=== PATIENT | male | born 1995 | race Two or more races ===

== ENCOUNTER 2017-09-21 17:57 | Emergency (ER) | payer OTHER ==
[2017-09-21 18:06] VITALS: BP 119/77
[2017-09-21] MEDS ORDERED: AMOXICILLIN 250 MG PREPACK#4 BTL TAKEHOME ONE (18:25)
--- NOTE | 2017-09-21 18:25 | EDPHY ---
H & P Stated Complaint: right ear pain . 5 days of clod s/s Time Seen by Provider: 09/21/17 18:01 HPI/ROS: CHIEF COMPLAINT: Right ear pain HISTORY OF PRESENT ILLNESS: This is a generally healthy 21-year-old who has a 5 days of upper respiratory symptoms including cough, sinus drainage, and possibly some fever at night. He was seen in a [facility]'s clinic and Mucinex was recommended. He has been using this and feels that it is helping him. Today he developed right ear pain while driving home from [place]. The pain has been present for the past hour. No drainage from the ear. He denies current fever, headache, shortness of breath, chest pain, nausea, abdominal pain , and diarrhea. REVIEW OF SYSTEMS: A ten point review of systems was performed and is negative with the exception of the items mentioned in the HPI. Past medical history: Negative Past surgical history: Negative Social history: He is a student of biology. He does not use tobacco products. General Appearance: Alert. Vital signs reviewed. Eyes: Pupils equal and round, no conjunctival injection, no discharge. Anicteric. ENT, Mouth: Wax was cleared from both ear canals using a curette. Right tympanic membrane is erythematous and bulging and there is some erythema of the right external auditory canal. Right tympanic membrane is intact. Left external auditory canal and left tympanic membrane appear normal. No sinus tenderness. Mucous membranes are moist, no oropharyngeal erythema or edema. Neck: No lymphadenopathy, supple. Respiratory: Lungs are clear to auscultation; no wheezes, rales, or rhonchi. Cardiovascular: Regular rate and rhythm; no murmur, rub, or gallop. Gastrointestinal: Abdomen is soft and nontender. Neurological: Alert and oriented. Moving all four extremities easily and equally. Psychiatric: Normal affect. - Personal History Current Tetanus Diphtheria and Acellular Pertussis (TDAP): Yes - Medical/Surgical History Hx Asthma: No Hx Chronic Respiratory Disease: No Hx Diabetes: No Hx Cardiac Disease: No Hx Renal Disease: No Hx Cirrhosis: No Hx Alcoholism: No Hx HIV/AIDS: No Hx Splenectomy or Spleen Trauma: No Other PMH: denies - Social History Smoking Status: Never smoked Constitutional: Initial Vital Signs Temperature (C) 36.9 C 09/21/17 18:02 Heart Rate 55 L 09/21/17 18:02 Respiratory Rate 16 09/21/17 18:02 Blood Pressure 119/77 09/21/17 18:02 O2 Sat (%) 96 09/21/17 18:02 Allergies/Adverse Reactions: No Known Allergies Allergy (Verified 09/21/17 17:59) Home Medications: Medication Instructions Recorded Amoxicillin 500 mg PO TID 10 Days #30 tab.chew 09/21/17 Medical Decision Making ED Course/Re-evaluation: Both ears cleared of cerumen using a lighted curette. Right ear shows evidence of otitis media. He is being prescribed amoxicillin. He is well hydrated, not septic appearing. Antibiotic instructions were reviewed with him. He is referred to a primary care physician. Differential Diagnosis: I considered a differential diagnosis that includes but is not limited to otitis media, otitis externa, tympanic membrane perforation, barotrauma, and viral infection. Departure - Departure Disposition: Home, Routine, Self-Care Clinical Impression: Right acute otitis media Condition: Good Instructions: Ear Infection (ED) Additional Instructions: Adult Pain & Fever Control: We recommend Acetaminophen (Tylenol) and Ibuprofen (Motrin,Advil) for pain and fever control. When fever is high or pain severe, both drugs can be used at the same time, but at different intervals. Please note the time differences. Your dose is: Acetaminophen 650mg every 4 to 6 hours Ibuprofen 400mg every 6 hours with food OR Note: do not take Acetaminophen with Hydrocodone (Vicodin, Lortab) or Oycodone (Percocet). These medications also contain Acetaminophen. No more than 3000mg of Acetaminophen should be taken in 24 hours (for an adult). Take the antibiotics as prescribed. I am referring you to Dr. Sera Fisher for primary care, as you do not have a local doctor. Referrals: Sera Fisher MD [Medical Doctor] - As per Instructions Prescriptions: Amoxicillin 500 mg PO TID 10 Days #30 tab.chew
== END 2017-09-21 18:50 | disposition home or self-care (01) ==
LOC: CED 17:57
DX: H66.91 Otitis media, unspecified, right ear (principal)